=== PATIENT | female | born 1945 | race African-American/Black ===

== ENCOUNTER 2017-01-04 09:07 | Outpatient (CLI) | payer MEDICARE ==
[2017-01-04 11:01] LABS: ALT (SGPT) 6 U/L (8-55); AST (SGOT) 14 U/L (5-34); Albumin 4.2 g/dL (3.4-4.8); Alkaline Phosphatase 68 U/L (40-150); Anion Gap 17 mmol/L (10-20); BUN (Urea Nitrogen) 11 mg/dL (9.8-20.1); Bilirubin, Total 0.6 mg/dL (0.2-1.2); Calc. Creatinine Clearance 0 mL/min (70-130); Calcium 9.1 mg/dL (7.8-10.44); Carbon Dioxide 22 mmol/L (23-31); Cardiac Risk 2.9 (Less than 4.5); Chloride 110 mmol/L (98-107); Cholesterol 201 mg/dl (< 200 Desired); Estimated GFR-MDRD Greater than 90; Globulin 3.2 g/dL (2.4-3.5); Glucose 95 mg/dL (83-110); HDL Cholesterol 69 mg/dL (>60 Neg Risk); LDL Cholesterol, Calculated 122 mg/dL; Potassium 4.3 mmol/L (3.5-5.1); Protein, Total 7.4 g/dL (6.0-8.3); Sodium 145 mmol/L (136-145); Triglycerides 48 mg/dL (Less than 150)
[2017-01-04 11:04] LABS: #Basophils 0.1 thou/uL (0.0-0.2); #Eosinphils 0.1 thou/uL (0.0-0.7); #Lymphocytes 1.6 thou/uL (1.20-3.40); #Monocytes 0.5 thou/uL (0.11-0.59); %Basophils 0.8 % (0.0-1.0); %Eosinophils 1.4 % (0.0-10.0); %Lymphocytes 22.2 % (21.0-51.0); %Monocytes 7.1 % (0.0-10.0); %Neutrophils 68.5 % (42.0-75.0); Hemoglobin 12.8 g/dL (12.0-16.0); Mean Corpuscular Hemoglobin 29.2 pg (27.0-31.0); Mean Platelet Volume 8.3 fL (7.4-10.4); Platelet Count 205 thou/uL (130-400); RBC Distribution Width 13.1 % (11.5-14.5); Red Blood Cell (RBC) Count 4.38 mill/uL (4.20-5.40); White Blood Cell (WBC) Count 7.3 thou/uL (4.8-10.8)
== END 2017-01-04 09:08 | disposition home or self-care (01) ==
LOC: HPCALD 09:07
PROVIDERS: ATTEND Family Medicine
DX: I10 Essential (primary) hypertension (principal)
CPT/HCPCS: 36415; 80053; 80061; 84443; 85025

== ENCOUNTER 2017-03-27 18:11 | Emergency (ER) | payer MEDICARE ==
[2017-03-27 18:47] LABS: Bilirubin Moderate (Negative); Blood, Urine Moderate (Negative); Clarity Slightly Cloudy (Clear); Glucose, Urine (Dipstick) Negative (Negative); Leukocyte Large (Negative); Nitrite Negative (Negative); Protein, Urine (Dipstick) 30 mg/dL (Neg-Trace); pH, Urine 5.5 (5.0-9.0)
[2017-03-27 18:54] LABS: Bacteria/HPF 2+ HPF (None Seen); Crystals/HPF None Seen HPF (Negative); Hyaline Casts/LPF NONE SEEN LPF (0-3 Hyaline); Other Casts/LPF None Seen LPF (0-3 Hyaline); Oval Fat Bodies/HPF None Seen HPF (None Seen); Renal Epithelial None Seen HPF (0-3); Sperm/HPF None Seen HPF (None Seen); Transitional Epithelial NONE SEEN HPF (0-3); Trichomonas/HPF 2+ HPF (None Seen); WBC/HPF 21-50 HPF (0-3); Yeast-All Forms None Seen HPF (None Seen)
[2017-03-27] MEDS ORDERED: metroNIDAZOLE 500 MG/100 ML BAG ONE (19:07)
[2017-03-27] MEDS ORDERED: metroNIDAZOLE 250 MG TAB ONE (19:09)
--- NOTE | 2017-03-27 21:37 | RAD ---
CHEST TWO VIEWS 03/27/17 Comparison is made with the 10/19/10 study. Mild elevation of the right hemidiaphragm is chronic. The old study showed considerable thickening a nd pleural fluid on the right which has since resolved. There is some mild residual thickening of th e minor fissure. The lungs are clear today. There is no sign of pneumonia or pleural effusion. The h eart size is normal. Calcification is seen in the aortic arch. There are no acute bony changes. IMPRESSION: Mild chronic residual findings on the right. No evidence of acute thoracic disease. POS: HOME
== END 2017-03-27 19:21 | disposition home or self-care (01) ==
LOC: BURERS 18:11
DX: N39.0 Urinary tract infection, site not specified (principal); J45.909 Unspecified asthma, uncomplicated; Z79.51 Long term (current) use of inhaled steroids
CPT/HCPCS: 71020; 81003; 81015

== ENCOUNTER 2017-04-13 11:16 | Outpatient (CLI) | payer MEDICARE ==
[2017-04-13 13:15] LABS: ALT (SGPT) 8 U/L (8-55); AST (SGOT) 15 U/L (5-34); Albumin 3.9 g/dL (3.4-4.8); Alkaline Phosphatase 68 U/L (40-150); Bilirubin, Direct 0.2 mg/dL (0.1-0.3); Bilirubin, Total 0.5 mg/dL (0.2-1.2); Cardiac Risk 2.3 (Less than 4.5); Cholesterol 180 mg/dl (< 200 Desired); HDL Cholesterol 77 mg/dL (>60 Neg Risk); LDL Cholesterol, Calculated 94 mg/dL; Triglycerides 45 mg/dL (Less than 150)
== END 2017-04-13 11:17 | disposition home or self-care (01) ==
LOC: HPCALD 11:16
PROVIDERS: ATTEND Family Medicine
DX: E78.00 Pure hypercholesterolemia, unspecified (principal)
CPT/HCPCS: 80061; 80076

== ENCOUNTER 2017-08-15 09:48 | Outpatient (CLI) | payer MEDICARE ==
--- NOTE | 2017-08-15 22:17 | CT ---
CT CHEST WITH CONTRAST CT ABDOMEN AND PELVIS WITH CONTRAST 08/15/[address] of the chest, abdomen and pelvis was done after injection of IV contrast. Oral contrast was also used. Axial slices were acquired initially, then coronal and sagittal reconstructions were done . Comparison is made with a prior CT of the chest dated 09/22/10 that also included much of the upper abdomen. CT OF THE THORAX: The mediastinum showed no mass or significant adenopathy. No coronary calcification s were seen. There is a scant amount of calcification in the aorta. No pericardial effusions were see n. There is no sign of aneurysm or dissection involving the aorta. The lungs show no acute lobar infiltrate. There are no effusions. Some areas of scarring are seen in the right lower lobe and near the right hemidiaphragm from prior disease. There are no effusions. No areas of bony destruction are seen in the thoracic spine. IMPRESSION: No acute thoracic findings to explain the patient's weight loss. CT OF THE ABDOMEN AND PELVIS: The distal esophagus/GE junction region is abnormal. Mucosal in this region is quite thick, a change from the [address] Inflammatory change or neoplasia are possibilities. Endoscopy is strongly recommend ed. Additionally, the patient's gallbladder is abnormal. It contains stones within and there may be w all thickening as well. As none of the stones are calcified, it is difficult to tell if there may be other pathology in the gallbladder or not. The remainder of the exam was less remarkable. The liver has several cysts within it, particularly in the right lobe. These were present in 2011 but cysts have enlarged slightly over time. The spleen, pancreas, and adrenal glands showed no acute findings. No mass or hydronephrosis was seen in either kidney. The aorta is normal in caliber. The bowel is nondistended. There are no signs of obstruction or inflammatory changes in or around bow el. No free air or free fluid was seen. CT of the pelvis showed no masses, fluid collections, or inflammatory changes. The patient does have significant spinal stenosis at L4-L5 and to a lesser extent L3-L4. IMPRESSION: 1. Abnormal GE junction with marked mucosal thickening. Inflammatory change versus neoplasm. Thi s area needs endoscopy and is suspicious for significant pathology. 2. Abnormal appearing gallbladder containing at least lucent stones and possibly some wall thick ening. It is difficult to tell if there may be other pathology in the gallbladder as well or if all o ne sees lucent areas in some of the stones. 3. Hepatic cysts of little concern. Marginally larger than 2011. 4. No acute findings otherwise. See further comments above Code T POS: HOME
== END 2017-08-15 09:49 | disposition home or self-care (01) ==
LOC: BURCT 09:48
PROVIDERS: ATTEND Family Medicine
DX: R63.4 Abnormal weight loss (principal)
CPT/HCPCS: 71260; 74177

== ENCOUNTER 2018-11-18 10:38 | Outpatient (CLI) | payer MEDICARE | END 2018-11-18 10:39 | disposition home or self-care (01) | LOC: BUREKG 10:38 | PROVIDERS: ATTEND Family Medicine | DX: Z01.818 Encounter for other preprocedural examination (principal) | CPT/HCPCS: 93005; 93010 ==

== ENCOUNTER 2020-02-20 16:51 | Emergency (ER) | payer MEDICARE ==
[2020-02-20] MEDS ORDERED: Bacitracin 1 PK ONE (17:40)
== END 2020-02-20 18:13 | disposition home or self-care (01) ==
LOC: BURERS 16:51
DX: R04.0 Epistaxis (principal)
CPT/HCPCS: 30901

== ENCOUNTER 2020-07-11 10:35 | Emergency (ER) | payer MEDICARE ==
[2020-07-11] MEDS ORDERED: Ondansetron PF 4 MG/2 ML Vial ONE (11:11)
[2020-07-11 11:47] LABS: #Lymphocytes 0.6 thou/uL (1.20-3.40); #Monocytes 0.3 thou/uL (0.11-0.59); #Neutrophils 6.6 thou/uL (1.40-6.50); %Basophils 0.5 % (0.0-1.0); %Lymphocytes 8.2 % (21.0-51.0); %Monocytes 3.8 % (0.0-10.0); %Neutrophils 87.5 % (42.0-75.0); Hemoglobin 13.1 g/dL (12.0-16.0); Mean Corpuscular HGB CONC 31.2 g/dL (32.0-36.0); Mean Corpuscular Hemoglobin 29.1 pg (27.0-31.0); Mean Corpuscular Volume 93.2 fL (78.0-98.0); Mean Platelet Volume 8.4 fL (7.4-10.4); Platelet Count 187 thou/uL (130-400); RBC Distribution Width 13.2 % (11.5-14.5); Red Blood Cell (RBC) Count 4.51 mill/uL (4.20-5.40); White Blood Cell (WBC) Count 7.5 thou/uL (4.8-10.8)
[2020-07-11 12:00] LABS: ALT (SGPT) 12 U/L (8-55); AST (SGOT) 16 U/L (5-34); Albumin 4.1 g/dL (3.4-4.8); Alkaline Phosphatase 74 U/L (40-110); Anion Gap 14 mmol/L (10-20); BUN (Urea Nitrogen) 14 mg/dL (9.8-20.1); Bilirubin, Total 0.5 mg/dL (0.2-1.2); Calc. Creatinine Clearance 0 mL/min (70-130); Calcium 8.9 mg/dL (7.8-10.44); Carbon Dioxide 24 mmol/L (23-31); Chloride 107 mmol/L (98-107); Globulin 3.7 g/dL (2.4-3.5); Glucose 130 mg/dL (83-110); Lipase 28 U/L (8-78); Potassium 3.9 mmol/L (3.5-5.1); Protein, Total 7.8 g/dL (6.0-8.3); Sodium 141 mmol/L (136-145)
[2020-07-11 12:16] LABS: Bilirubin Negative (Negative); Blood, Urine Trace (Negative); Clarity Clear (Clear); Glucose, Urine (Dipstick) Negative (Negative); Ketone, Urine Negative (Negative); Leukocyte Negative (Negative); Nitrite Negative (Negative); Protein, Urine (Dipstick) Negative (Neg-Trace); Urobilinogen 0.2 mg/dL (Less than 2); pH, Urine 5.5 (5.0-9.0)
[2020-07-11 12:20] LABS: Bacteria/HPF None Seen HPF (None Seen); RBC/HPF 0-3 HPF (0-3); Squamous Epithelial 0-3 HPF (0-3); WBC/HPF 0-3 HPF (0-3)
[2020-07-12 17:58] LABS: SARS-CoV-2 MS2 Positive; SARS-CoV-2 N Gene Negative; SARS-CoV-2 S Gene Negative; SARS-CoV-2 by NAA Not Detected (NotDetected); SARS-CoV-2 orf1ab Negative
== END 2020-07-11 13:35 | disposition home or self-care (01) ==
LOC: BURERS 10:35
DX: R11.2 Nausea with vomiting, unspecified (principal); Z20.828 Contact with and (suspected) exposure to other viral communicable diseases; I10 Essential (primary) hypertension
CPT/HCPCS: 80053; 83690; 84484; 85025; 93005; 96361; 96374; 99284; U0003; 36415; 81003; 81015; 87635; J2405

== ENCOUNTER 2020-10-19 14:54 | Outpatient (CLI) | payer MEDICARE | END 2020-10-19 14:55 | disposition home or self-care (01) | LOC: BURRAD 14:54 | PROVIDERS: ATTEND Family Medicine | DX: M17.11 Unilateral primary osteoarthritis, right knee (principal) ==

== ENCOUNTER 2022-09-02 05:33 | Emergency (ER) | payer MEDICARE ==
[2022-09-02] MEDS ORDERED: Oxymetazoline HCl 0.05% (30 ML BOT) ONE (05:49)
== END 2022-09-02 06:00 | disposition home or self-care (01) ==
LOC: BURERS 05:33
DX: R04.0 Epistaxis (principal); I10 Essential (primary) hypertension; G40.909 Epilepsy, unspecified, not intractable, without status epilepticus; J45.909 Unspecified asthma, uncomplicated; Z79.899 Other long term (current) drug therapy; Z79.01 Long term (current) use of anticoagulants
CPT/HCPCS: 99283

== ENCOUNTER 2025-02-11 06:20 | Emergency (ER) | payer MEDICARE ==
[2025-02-11] MEDS ORDERED: Silver Nitrate Application 1 EACH ONE (06:51)
[2025-02-11] MEDS ORDERED: Oxymetazoline HCl 0.05% (30 ML BOT) ONE (06:53)
== END 2025-02-11 07:43 | disposition home or self-care (01) ==
LOC: BURERS 06:20
DX: R04.0 Epistaxis (principal); I10 Essential (primary) hypertension
CPT/HCPCS: 30901; 99282